=== PATIENT | female | born 1975 | race Asian ===

== ENCOUNTER 2017-02-08 15:30 | Emergency (ER) | payer OTHER ==
--- NOTE | ~2017-02-08 | CR181 ---
[facility] A Service of [facility] & [facility] RADIOLOGY TEXT RESULTS PATIENT: REID RUIZ LOCATION: CFTX : 77 UNIT #: [id number] AGE: [address]: Sophia Larsen SEX: F ORDER DR: [id number] [facility] [address] [place], [place] [address] [id number] E MR#: [id number] Acc #: [id number] NAME: REID RUIZ : 1975 SEX: F STUDY DATE/TIME: 02/08/2017 14:51 UNIT: [facility] ROOM: STUDY DESCRIPTION: CR Lumbar Spine 2 or 3 Views Attending Physician: Sophia Larsen Pa-C Ordering Physician: Sophia Larsen Pa-C Primary Care Physician: [place] Primary Care Physician MEDICAL IMAGING REPORT This report is preliminary unless electronic signature is present EXAM Lumbar spine, 3 views. INDICATION Low back pain for 4 days. COMPARISON STUDIES No comparisons. FINDINGS There is mild degenerative disc space narrowing at L5-S1. Vertebral body heights and alignment are maintained. There may be tiny bilateral kidney stones. IMPRESSION Degenerative disc space narrowing at L5-S1. Question tiny kidney stones bilaterally. Dictated by... Tigre Pena M.D. THIS IS AN ELECTRONICALLY VERIFIED REPORT Tigre Pena M.D. at 02/09/2017 5:10 PM CAESAR/jakob TD: 02/08/2017 17:22 JOB #: [id number] MEDICAL IMAGING REPORT Page 1 of 1 COPY
[2017-02-08 14:52] LABS: URINE SOURCE CLEAN CATCH
[2017-02-08 15:00] LABS: URINE APPEARANCE TURBID; URINE BILIRUBIN NEG (NEG); URINE BLOOD 1+ (NEG); URINE COLOR YELLOW; URINE GLUCOSE NEG (NEG); URINE KETONE NEG (NEG); URINE LEUKOCYTE ESTERASE 2+ (NEG); URINE NITRATE NEG (NEG); URINE PROTEIN NEG (NEG); URINE SPECIFIC GRAVITY 1.026 (1.003-1.035)
[2017-02-08 15:02] LABS: CULTURE INDICATED? YES; URINE BACTERIA AUWI 2+ (NEGATIVE); URINE SQUAMOUS EPITHELIAL CELL OCC /[HPF]; UWBCS1 AUWI 25-50 (0-5)
== END 2017-02-08 15:37 | disposition home or self-care (01) ==
LOC: CFTX 15:30
PROVIDERS: Physician Assistant Medical
DX: S39.012A Strain of muscle, fascia and tendon of lower back, initial encounter (principal); X58.XXXA Exposure to other specified factors, initial encounter
CPT/HCPCS: 72100; 81003; 84703; 87086; 96372; 99283; J1885; J2360